=== PATIENT | female | born 1940 | race Caucasian/White ===

== ENCOUNTER 2022-06-06 11:58 | Outpatient (REF) | payer MEDICARE, MEDICAID, SELFPAY ==
[2022-06-06 12:34] LABS: VALPROIC ACID 27.9 ug/mL
== END 2022-06-06 11:59 | disposition home or self-care (01) ==
LOC: LBN 11:58
PROVIDERS: Visit Provider Family Medicine
DX: F33.1 Major depressive disorder, recurrent, moderate (principal); F01.A0 Vascular dementia, mild, without behavioral disturbance, psychotic disturbance, mood disturbance, and anxiety; Z51.81 Encounter for therapeutic drug level monitoring; Z79.899 Other long term (current) drug therapy
CPT/HCPCS: 80164

== ENCOUNTER 2022-07-11 17:06 | Outpatient (REF) | payer MEDICARE, MEDICAID, SELFPAY ==
[2022-07-11 17:46] LABS: Abs Immature Grans 0.07 10^3/uL (0.0-0.06); Absolute Lymphocyte Count 1.55 10^3/uL (1.2-3.4); Absolute Monocyte Count 1.02 10^3/uL (0.1-0.8); Basophils % 0.2; HGB 11.9 g/dL (11.2-15.7); Immature Grans % 0.4; Lymphocytes % 8.5; MCH 28.7 pg (27.0-33.0); MCHC 32.2 % (32.0-36.0); MCV 89 fL (80-95); Monocytes % 5.6; Neutrophils % 85.3; Platelet Count 167 10^3/uL (130-400); RBC 4.14 10^6/uL (3.93-5.22); RDW 14.9 % (11.7-14.6); RDW-SD 48.8 fL; WBC 18.22 10^3/uL (4.4-10.8)
[2022-07-11 18:10] LABS: Absolute Basophil Count 0.04 10^3/uL (0.0-0.2); Absolute Neutrophil Count 15.54 10^3/uL (1.2-6.7)
[2022-07-11 18:12] LABS: ALT 19 U/L (14-59); AST 9 U/L (15-37); Albumin 2.9 g/dL (3.4-5.0); Alkaline Phosphatase 67 U/L (46-116); Anion Gap 9.1 mmol/L (3-11); BUN 24 mg/dL (7-18); Bilirubin, Total 0.5 mg/dL (0.2-1.0); CO2 24.9 mmol/L (21.0-32.0); CREATININE 1.2 mg/dL (0.55-1.02); Calcium 9.5 mg/dL (8.5-10.1); Chloride 108 mmol/L (98-107); Estimated GFR 46.05 (mL/min/1.73m2); Glucose 179 mg/dL (74-106); Potassium 3.9 mmol/L (3.5-5.1); Sodium 142 mmol/L (136-145); Total Protein 7.8 g/dL (6.4-8.2)
[2022-07-12 11:41] LABS: Hemoglobin A1C 6.2 % (<5.7)
== END 2022-07-11 17:07 | disposition home or self-care (01) ==
LOC: LBN 17:06
PROVIDERS: Visit Provider Family Medicine
DX: E11.9 Type 2 diabetes mellitus without complications (principal); D64.9 Anemia, unspecified; N18.30 Chronic kidney disease, stage 3 unspecified
CPT/HCPCS: 80053; 83036; 85025

== ENCOUNTER 2022-07-12 17:59 | Outpatient (REF) | payer MEDICARE, MEDICAID, SELFPAY ==
[2022-07-12 10:20] LABS: Bilirubin Negative (Negative); Blood Trace-intact (Negative); Clarity Sl Cloudy (Clear); Glucose Negative (Negative); Ketones Negative (Negative); Leukocyte Esterase Large (Negative); Nitrite Positive (Negative); Urobilinogen 0.2 mg/dL (Up to 0.2)
[2022-07-12 10:27] LABS: C & S Indicated? C&S Done As Ordered; WBC >50 HPF (0-5)
[2022-07-12 10:48] LABS: COVID-19 PCR Negative (Negative); Influenza A PCR Negative (Negative); Influenza B PCR Negative (Negative); RSV PCR Negative (Negative)
[2022-07-12 10:50] LABS: Source Nasopharynx
== END 2022-07-12 18:00 | disposition home or self-care (01) ==
LOC: LBN 17:59
PROVIDERS: Visit Provider Physician Assistant
DX: D72.0 Genetic anomalies of leukocytes; B96.4 Proteus (mirabilis) (morganii) as the cause of diseases classified elsewhere
CPT/HCPCS: 87077; 87637; 81003; 81015; 87086; 87186

== ENCOUNTER 2022-07-21 17:10 | Outpatient (REF) | payer MEDICARE, MEDICAID, SELFPAY ==
[2022-07-21 18:30] LABS: Abs Immature Grans 0.04 10^3/uL (0.0-0.06); Absolute Basophil Count 0.05 10^3/uL (0.0-0.2); Absolute Eosinophil Count 0.16 10^3/uL (0.0-0.7); Absolute Lymphocyte Count 1.79 10^3/uL (1.2-3.4); Absolute Monocyte Count 0.63 10^3/uL (0.1-0.8); Basophils % 0.5; Eosinophils % 1.7; HCT 33.2 % (36.0-46.0); HGB 10.7 g/dL (11.2-15.7); Immature Grans % 0.4; Lymphocytes % 19.3; MCH 28.8 pg (27.0-33.0); MCHC 32.2 % (32.0-36.0); MCV 89 fL (80-95); Monocytes % 6.8; Neutrophils % 71.3; Platelet Count 186 10^3/uL (130-400); RBC 3.72 10^6/uL (3.93-5.22); RDW 14.4 % (11.7-14.6); RDW-SD 46.6 fL; WBC 9.27 10^3/uL (4.4-10.8)
[2022-07-21 18:46] LABS: ALT 11 U/L (14-59); AST < 5 U/L (15-37); Albumin 2.6 g/dL (3.4-5.0); Alkaline Phosphatase 62 U/L (46-116); Anion Gap 6.3 mmol/L (3-11); BUN 16 mg/dL (7-18); Bilirubin, Total 0.2 mg/dL (0.2-1.0); CO2 27.7 mmol/L (21.0-32.0); Calcium 8.9 mg/dL (8.5-10.1); Chloride 108 mmol/L (98-107); Estimated GFR 57.31 (mL/min/1.73m2); Glucose 151 mg/dL (74-106); Potassium 3.6 mmol/L (3.5-5.1); Sodium 142 mmol/L (136-145); Total Protein 6.5 g/dL (6.4-8.2)
== END 2022-07-21 17:11 | disposition home or self-care (01) ==
LOC: LBN 17:10
PROVIDERS: Visit Provider Physician Assistant
DX: G83.9 Paralytic syndrome, unspecified (principal)
CPT/HCPCS: 80053; 85025

== ENCOUNTER 2022-08-08 17:21 | Outpatient (REF) | payer MEDICARE, MEDICAID, SELFPAY ==
[2022-08-08 18:55] LABS: TSH 1.36 uIU/mL (0.36-3.74)
== END 2022-08-08 17:22 | disposition home or self-care (01) ==
LOC: LBN 17:21
PROVIDERS: Visit Provider Physician Assistant
DX: E03.9 Hypothyroidism, unspecified (principal)
CPT/HCPCS: 84443

== ENCOUNTER 2022-08-25 07:25 | Outpatient (REF) | payer MEDICARE, MEDICAID, SELFPAY ==
[2022-08-26 07:46] LABS: Bilirubin Negative (Negative); Blood Negative (Negative); Clarity Clear (Clear); Glucose Negative (Negative); Ketones Negative (Negative); Leukocyte Esterase Small (Negative); Nitrite Negative (Negative); Specific Gravity >= 1.030 (1.005-1.025); Urobilinogen 0.2 mg/dL (Up to 0.2)
[2022-08-26 08:46] LABS: Bacteria Negative HPF (Negative); Epithelial Cells Few HPF (Negative); WBC 20-50 HPF (0-5)
[2022-08-26 08:47] LABS: Casts 0-2 Hyaline LPF (Negative); Crystals Few Calcium Oxalate HPF (Negative); Mucus Trace (Negative)
[2022-08-26 08:48] LABS: C & S Indicated? Yes
== END 2022-08-25 07:26 | disposition home or self-care (01) ==
LOC: LBN 07:25
PROVIDERS: Visit Provider Physician Assistant
DX: R30.9 Painful micturition, unspecified (principal); I50.9 Heart failure, unspecified; R82.79 Other abnormal findings on microbiological examination of urine
CPT/HCPCS: 81003; 81015; 87086

== ENCOUNTER 2022-10-02 15:25 | Inpatient (IN) | payer MEDICARE, MEDICAID, SELFPAY ==
[2022-10-02] VITALS (94 sets, daily range): BP systolic 104–157; BP diastolic 49–107; PULSE 76–147; RESP 5–33; TEMP 36.3–36.9; O2SAT 84–95
--- NOTE | 2022-10-02 15:30 | RT.EKG_ITS ---
APPROVED REPORT Exam: Resting ECG Reason for Exam: SOB Patient Location: I HR:121 bpm ECG Measurements Heart Rate 121 AXIS MN [id number] P [id number] QRSd 71 QRS 3 QT 333 T 40 QTc 474 Conclusion Atrial fibrillation...? atrial activity Nondiagnostic ST-T abnormalities
--- NOTE | 2022-10-02 15:30 | DI.RAD_ITS ---
Exam(s) XR PORTABLE CHEST AP EXAM: XR PORTABLE CHEST AP CLINICAL HISTORY: sob. TECHNIQUE: 2D digital imaging was performed. COMPARISON: No exams were available for comparison FINDINGS: Single AP portable view. Heart size is upper normal. The mediastinum is not widened. There is significant infiltrate in the right lung, predominantly in the right upper lobe but also inv olving the lower lobe. The left lung is clear. There are no obvious pleural effusions. Vertebroplasty cement is noted in L1 vertebral body IMPRESSION: Prominent right lung infiltrates as described above. No obvious pleural effusions evident on this si ngle portable view. DATA REPOSITORY: RADIATION DOSE DELIVERED:
[2022-10-02] MEDS: Albuterol/Ipratropium 3 ML UPD VIAL UPD (15:37)
[2022-10-02] MEDS: Normal Saline 1,000 ML 1000 ML IV (15:50)
[2022-10-02] MEDS: methylPREDNISolone SUCC 125 MG VIAL IVP (15:52)
[2022-10-02 15:56] LABS: Abs Immature Grans 0.06 10^3/uL (0.0-0.06); Absolute Lymphocyte Count 1.28 10^3/uL (1.2-3.4); Absolute Monocyte Count 0.68 10^3/uL (0.1-0.8); Basophils % 0.2; HCT 36.6 % (36.0-46.0); HGB 11.6 g/dL (11.2-15.7); Immature Grans % 0.5; Lymphocytes % 9.7; MCH 28.3 pg (27.0-33.0); MCHC 31.7 % (32.0-36.0); MCV 89 fL (80-95); Monocytes % 5.2; Neutrophils % 84.4; Platelet Count 203 10^3/uL (130-400); RDW 15.1 % (11.7-14.6); RDW-SD 49.1 fL; WBC 13.15 10^3/uL (4.4-10.8)
[2022-10-02 15:58] LABS: Absolute Basophil Count 0.03 10^3/uL (0.0-0.2)
[2022-10-02 16:15] LABS: ALT 12 U/L (14-59); AST 6 U/L (15-37); Albumin 2.8 g/dL (3.4-5.0); Alkaline Phosphatase 66 U/L (46-116); BUN 49 mg/dL (7-18); Bilirubin, Total 0.5 mg/dL (0.2-1.0); CREATININE 1.4 mg/dL (0.55-1.02); Calcium 9.5 mg/dL (8.5-10.1); Chloride 111 mmol/L (98-107); Estimated GFR 38.27 (mL/min/1.73m2); Glucose 169 mg/dL (74-106); Magnesium 2.2 mg/dL (1.8-2.4); Potassium 4.3 mmol/L (3.5-5.1); Sodium 148 mmol/L (136-145); Troponin I < 50 ng/L (<or=60)
--- NOTE | 2022-10-02 16:23 | W.ED.GENAD ---
Discharge Plan Discharge Details Chief Complaint: SOB/SuddenOnset Admit Date/Time: 10/02/22 16:51 Admit Provider: Shekhar Wiggins Attending Provider: Shekhar Wiggins Primary Care Provider: None,None ED Provider: Tony Mo Medical Decision Making Upon arriving to the emergency department. Patient was treated with a DuoNeb and Solu-Medrol and respiratory at bedside present suctioning. Patient did mildly better with this but was found to be persistently hypoxic. Given minimal to no change after DuoNeb the patient was placed on rescue BiPAP for presumptive diagnosis of congestive heart failure. Please see critical care note for further details medical decision-making. Patient admitted to the hospitalist to the ICU because she was unresponsive by pulm HPI General Date/Time Provider Initiated Documentation: 10/02/22 15:30. HPI Narrative: 81-year-old who according to EMS was found to be altered this morning, at the end of the shift he decided to send the patient to the emergency department. According to EMS she was found in respiratory distress with low sats requiring supplemental oxygen which she usually does not have. With 4 L of oxygen her saturations climbed above 19. She arrives to the emergency room with an altered mental status. She was also found to be in rapid atrial fibrillation. The patient is unable to provide any medical history on arrival. Medical history obtained by EMS and review of the custodial paperwork. Related Data Home Medications Medication Instructions Recorded Confirmed acetaminophen 500 mg tablet 1,000 mg PO TID PRN 10/02/22 10/02/22 amlodipine 10 mg tablet 10 mg PO DAILY 10/02/22 10/02/22 cholecalciferol (vitamin D3) 25 25 mcg PO DAILY 10/02/22 10/02/22 mcg (1,000 unit) tablet divalproex 125 mg capsule,delayed 125 mg PO BID 10/02/22 10/02/22 release sprinkle fluticasone 500 mcg-salmeterol 50 1 inh inhalation BID 10/02/22 10/02/22 mcg/dose blistr powdr for inhalation (Advair Diskus) furosemide 20 mg tablet 20 mg PO DAILY 10/02/22 10/02/22 hydrocortisone 2.5 % topical cream 1 applic topical Q12H PRN 10/02/22 10/02/22 insulin detemir U-100 100 unit/mL 30 unit subcut QAM 10/02/22 10/02/22 (3 mL) subcutaneous pen (Levemir FlexPen) ipratropium 20 mcg-albuterol 100 2 puff inhalation Q6H 10/02/22 10/02/22 mcg/actuation mist for inhalation (Combivent Respimat) levothyroxine 50 mcg tablet 50 mcg PO DAILY 10/02/22 10/02/22 loperamide 2 mg capsule 2 mg PO Q4H PRN 10/02/22 10/02/22 metoprolol tartrate 50 mg tablet 50 mg PO BID 10/02/22 10/02/22 nystatin 100,000 unit/gram topical 1 applic topical PRN PRN 10/02/22 10/02/22 powder polyethylene glycol 3350 17 gram 17 g PO PRN PRN 10/02/22 10/02/22 oral powder packet (Miralax) sertraline 50 mg tablet 150 mg PO DAILY 10/02/22 10/02/22 umeclidinium 62.5 mcg/actuation 1 inh inhalation DAILY 10/02/22 10/02/22 blister powder for inhalation (Incruse Ellipta) Allergies Allergy/AdvReac Type Severity Reaction Status Date / Time No Known Allergies Allergy Unverified 10/02/22 15:55 General Stated Complaint: SOB/SuddenOnset OTIS: 2 Review of Systems Narrative: Unable to obtain review of systems PFSH All Active Problems (Updated 10/02/22 @ 17:16 by Shekhar Wiggins MD) Discharge planning issues (Acute) Hypothyroidism (Chronic) Depression (Chronic) Hypertension (Chronic) Acute respiratory failure (Acute) COPD (chronic obstructive pulmonary disease) (Chronic) Aspiration pneumonia (Acute) Social History Smoking/Tobacco Use Status: Unknown Smoking risk assessment performed?: Yes Exam Narrative Exam Narrative: General: Altered mental status, arousable nonverbal Head Size/Shape: normocephalic, atraumatic Eyes Pupils: PERRLA Extraocular Mobility: intact and symmetrical Conjunctiva: non-injected, anicteric, no discharge Ears, Nose, Throat Nares: patent bilaterally Oral Cavity: moist Neck: no masses, no crepitus Lymph Nodes: no cervical lymphadenopathy Respiratory Respiratory Effort:pos dyspnea Auscultation: Crackles bilaterally Cardiovascular Heart Auscultation: Tachycardic, irregular irregular Pulse Quality: +2 equal bilaterally, location(s) radial Abdomen Inspection and Palpation: soft, non-tender, non-distended, no hepatosplenomegaly Musculoskeletal System Joints, Bones, and Muscles: no deformities Extremities: warm and well-perfused, no cyanosis, capillary refill <2 seconds Skin Skin Inspection: no rash, no lesions, no bruising Neurological Motor: normal tone, normal strength, moving all extremities equally Psychiatric: good insight, good judgement, normal mood and affect Course Vital Signs Vital signs: Vital Signs Temperature 36.6 C 10/02/22 15:25 Pulse 110 H 10/02/22 15:25 Respiratory Rate 20 10/02/22 15:25 Blood Pressure 139/63 10/02/22 15:25 Pulse Oximetry 90 L 10/02/22 15:25 Temperature 36.6 C 10/02/22 15:25 Temperature Source Oral 10/02/22 15:25 Pulse 113 H 10/02/22 16:15 Respiratory Rate 26 H 10/02/22 16:15 Blood Pressure 139/63 10/02/22 15:25 Blood Pressure Position Sitting 10/02/22 15:25 Pulse Oximetry 92 10/02/22 16:15 Oxygen Delivery Method Nasal Cannula 10/02/22 15:37 Oxygen Flow Rate 3 10/02/22 15:37 Fraction of Inspired Oxygen (FIO2) 30 10/02/22 16:15 Lab/Test Results Lab/Test Results: Laboratory Tests Range/Units 10/02/22 10/02/22 15:43 15:43 WBC (4.4-10.8) 10^3/uL 13.15 H RBC (3.93-5.22) 10^6/uL 4.10 Hgb (11.2-15.7) g/dL 11.6 Hct (36.0-46.0) % 36.6 MCV (80-95) fL 89 MCH (27.0-33.0) pg 28.3 MCHC (32.0-36.0) % 31.7 L RDW (11.7-14.6) % 15.1 H Plt Count (130-400) 10^3/uL 203 MPV (8.0-11.0) fL Immature Gran % 0.5 Neutrophils % 84.4 Lymphocytes % 9.7 Monocytes % 5.2 Eosinophils % 0.0 Basophils % 0.2 Nucleated RBC % (0.0-0.3) % 0.0 Absolute Neutrophils (1.2-6.7) 10^3/uL 11.10 H Absolute Lymphocytes (1.2-3.4) 10^3/uL 1.28 Absolute Monocytes (0.1-0.8) 10^3/uL 0.68 Absolute Eosinophils (0.0-0.7) 10^3/uL 0.00 Absolute Basophils (0.0-0.2) 10^3/uL 0.03 Sodium (136-145) mmol/L 148 H Potassium (3.5-5.1) mmol/L 4.3 Chloride (98-107) mmol/L 111 H Carbon Dioxide (21.0-32.0) mmol/L 24.0 Anion Gap (3-11) mmol/L 13.0 H BUN (7-18) mg/dL 49 H Creatinine (0.55-1.02) mg/dL 1.4 H Est GFR (CKD-EPI 2020) (mL/min/1.73m2) 38.27 Glucose (74-106) mg/dL 169 H Calcium (8.5-10.1) mg/dL 9.5 Magnesium (1.8-2.4) mg/dL 2.2 Total Bilirubin (0.2-1.0) mg/dL 0.5 AST (15-37) U/L 6 L ALT (14-59) U/L 12 L Alkaline Phosphatase (46-116) U/L 66 Troponin I (<or=60) ng/L < 50 Total Protein (6.4-8.2) g/dL 8.0 Albumin (3.4-5.0) g/dL 2.8 L Critical Care Time Critical Care Time Total Critical Care Time: 35 Attestation: 81-year-old lady with altered mental status throughout the day. Sent from the custodial for evaluation. Found to be in rapid atrial fibrillation as well as respiratory distress. Treated with bronchodilators and steroids initially in the emergency department with very little results therefore, transition to rescue BiPAP with significant improvement. Decreased work of breathing. She was also found to have right-sided pneumonia for which antibiotics were ordered. Case discussed with hospitalist. Patient to be admitted to the ICU because of rescue BiPAP. Patient is DNR/DNI.
[2022-10-02 16:39] LABS: Bilirubin Negative (Negative); Blood Negative (Negative); Clarity Clear (Clear); Glucose Negative (Negative); Ketones Trace mg/dL (Negative); Leukocyte Esterase Negative (Negative); Nitrite Negative (Negative); Specific Gravity 1.015 (1.005-1.025); Urobilinogen 0.2 mg/dL (Up to 0.2); pH 5.5 (5-8)
[2022-10-02] MEDS: Furosemide 40 MG/4 ML VIAL IVP (16:42)
--- NOTE | 2022-10-02 16:43 | DI.VRAD_ITS ---
PROCEDURE INFORMATION: Exam: XR Chest Exam date and time: 10/02/2022 4:25 PM Age: 81 years old Clinical indication: Shortness of breath TECHNIQUE: Imaging protocol: Radiologic exam of the chest. Views: 1 view. COMPARISON: No relevant prior studies available. FINDINGS: Lungs: Right-sided pulmonary infiltrates are noted. Lobar consolidative changes in the right upper lobe. Segmental consolidative changes in the right lower lobe. Left lung is essentially clear. Pleural spaces: No gross pleural effusion. Heart/Mediastinum: Mild cardiac enlargement. Bones/joints: Degenerative skeletal changes. Previous kyphoplasty in the region of L1. IMPRESSION: Right-sided pneumonia involving upper and lower lung mora. Dictated and Authenticated by: Robert Go MD. Ordering:JAVIER Jimenez MD
--- NOTE | 2022-10-02 17:05 | W.PM.HP.N ---
Date of service: 10/02/22 Time of Service: 17:05 Assessment and Plan Assessment and plan (1) Aspiration pneumonia: Status: Acute Assessment and plan: Right upper and lower lobe infiltrates; extensive. BiPAP, accapella and IS when able. Rocephin 2gram IV Q24H. Blood cultures obtained in ED. (2) COPD (chronic obstructive pulmonary disease): Status: Chronic Assessment and plan: Cont Umeclidinium bromide; home med. PRN albuterol nebs. She was give a dose of IV solu-medrol in the ED. Doesn't appear to be in an exacerbation. (3) Acute respiratory failure: Status: Acute Assessment and plan: Secondary to pneumonia. Cont BiPAP. (4) Hypertension: Status: Chronic Assessment and plan: Cont amlodipine and metoprolol with parameters. (5) Depression: Status: Chronic Assessment and plan: Cont sertraline and depakote. (6) Hypothyroidism: Status: Chronic Assessment and plan: Cont levothyroxine. (7) Discharge planning issues: Status: Acute Assessment and plan: [facility] DNR/DNI History of Present Illness History of Present Illness Chief Complaint: Shortness of breath. Decreased LOC Narrative: This is a 81 yo female with a PMH of COPD, HTN, depression. She was sent to the ED from [facility] for altered level of consciouness noted earlier in the AM and then she developed respiratory distressed. No report of CP, N/V, Fever. She denies any recent choking event. In the ED she was tachycardic and tachypneic. She was administered a Duoneb treatment and IV solu-medrol. She was placed on BiPAP. Her WBC was 13.15. Na 148. K 4.3. BUN 49. Creatinine 1.4. Glucose 169. Procalcitonin elevated at 5.6. Initial DDX included CHF and 20mg IV lasix administered. CXR, however, showed Pneumonia of R upper and lower lung mora; likely aspiration. Rocephin initiated. Review of Systems All systems reviewed & are unremarkable except as noted in HPI and below PFSH All Active Problems (Updated 10/03/22 @ 12:52 by Haily King MD) NISHA (acute kidney injury) (Acute) Hypernatremia (Acute) Leukocytosis (Acute) Discharge planning issues (Acute) Hypothyroidism (Chronic) Depression (Chronic) Hypertension (Chronic) Acute respiratory failure (Acute) COPD (chronic obstructive pulmonary disease) (Chronic) Aspiration pneumonia (Acute) Social History Smoking/Tobacco Use Status: Former Tobacco Use Tobacco: How many years used: 30 Smoking risk assessment performed?: Yes Meds Allergies and Home Medications Allergies Allergy/AdvReac Type Severity Reaction Status Date / Time No Known Allergies Allergy Unverified 10/02/22 15:55 Home Medications Medication Instructions Recorded Confirmed Type acetaminophen 500 mg tablet 1,000 mg PO TID PRN 10/02/22 10/02/22 History amlodipine 10 mg tablet 10 mg PO DAILY 10/02/22 10/02/22 History cholecalciferol (vitamin D3) 25 25 mcg PO DAILY 10/02/22 10/02/22 History mcg (1,000 unit) tablet divalproex 125 mg capsule,delayed 125 mg PO BID 10/02/22 10/02/22 History release sprinkle fluticasone 500 mcg-salmeterol 50 1 inh inhalation BID 10/02/22 10/02/22 History mcg/dose blistr powdr for inhalation (Advair Diskus) furosemide 20 mg tablet 20 mg PO DAILY 10/02/22 10/02/22 History hydrocortisone 2.5 % topical cream 1 applic topical Q12H PRN 10/02/22 10/02/22 History insulin detemir U-100 100 unit/mL 30 unit subcut QAM 10/02/22 10/02/22 History (3 mL) subcutaneous pen (Levemir FlexPen) ipratropium 20 mcg-albuterol 100 2 puff inhalation Q6H 10/02/22 10/02/22 History mcg/actuation mist for inhalation (Combivent Respimat) levothyroxine 50 mcg tablet 50 mcg PO DAILY 10/02/22 10/02/22 History loperamide 2 mg capsule 2 mg PO Q4H PRN 10/02/22 10/02/22 History metoprolol tartrate 50 mg tablet 50 mg PO BID 10/02/22 10/02/22 History nystatin 100,000 unit/gram topical 1 applic topical PRN PRN 10/02/22 10/02/22 History powder polyethylene glycol 3350 17 gram 17 g PO PRN PRN 10/02/22 10/02/22 History oral powder packet (Miralax) sertraline 50 mg tablet 150 mg PO DAILY 10/02/22 10/02/22 History umeclidinium 62.5 mcg/actuation 1 inh inhalation DAILY 10/02/22 10/02/22 History blister powder for inhalation (Incruse Ellipta) Exam Narrative Exam Narrative: Gen: Pt is lying supine on gurney. She is conversational. Weak vocal projection. Congestion in upper airway audible w/o stethascope. HEENT: atraumatic. Sclera clear. mildly dry mucous membranes. Neck: no JVD Lungs: diminished on the right but coarse throughout. Mildly labored breathing. CV: Tachy, irregular rhythm Abd: obese, NT, ND, +BS Ext: No edema or calf tenderness. Neuro: Sven. No focal motor deficits. No facial droop. Voice projection is weak. No tremor. Psych: Gross appearance is normal. Affect appropriate. Results Labs 10/03/22 05:45 10/03/22 05:45 Labs: Laboratory Results - last 24 hr 10/02/22 10/02/22 10/02/22 15:43 15:43 16:10 WBC 13.15 H RBC 4.10 Hgb 11.6 Hct 36.6 MCV 89 MCH 28.3 MCHC 31.7 L RDW 15.1 H Plt Count 203 MPV Immature Gran % 0.5 Neutrophils % 84.4 Lymphocytes % 9.7 Monocytes % 5.2 Eosinophils % 0.0 Basophils % 0.2 Nucleated RBC % 0.0 Absolute Neutrophils 11.10 H Absolute Lymphocytes 1.28 Absolute Monocytes 0.68 Absolute Eosinophils 0.00 Absolute Basophils 0.03 Sodium 148 H Potassium 4.3 Chloride 111 H Carbon Dioxide 24.0 Anion Gap 13.0 H BUN 49 H Creatinine 1.4 H Est GFR (CKD-EPI 2020) 38.27 Glucose 169 H Calcium 9.5 Magnesium 2.2 Total Bilirubin 0.5 AST 6 L ALT 12 L Alkaline Phosphatase 66 Troponin I < 50 Total Protein 8.0 Albumin 2.8 L Urine Color Yellow Urine Clarity Clear Urine pH 5.5 Ur Specific [place] 1.015 Urine Protein Negative Urine Ketones Trace H Urine Blood Negative Urine Nitrite Negative Urine Bilirubin Negative Urine Urobilinogen 0.2 Ur Leukocyte Esterase Negative Urine Glucose Negative Last Vital Signs Temp 36.6 C 10/02/22 15:25 Pulse 113 H 10/02/22 16:15 Resp 26 H 10/02/22 16:15 BP 139/63 10/02/22 15:25 Pulse Ox 92 10/02/22 16:15 Time Spent Time spent with Patient: 40-54 minutes Time was spent: preparing to see the patient(eg.review tests), obtaining and/or reviewing separately otained hiistory, ordering medications,tests, procedures, referring, communicating with other health respiratory care faculty, indepentently interpreting results, counseling the patient and care coordination
[2022-10-02 17:28] LABS: Source Nasal/Nares
[2022-10-02 17:33] LABS: Lab Add On Test DONE
[2022-10-02 18:05] LABS: Procalcitonin 5.6 ng/mL
[2022-10-02 18:06] LABS: COVID-19 PCR Negative (Negative)
[2022-10-02 18:52] LABS: BE (Venous) -3 mmol/L (-2-3); HCO3 (Venous) 22 mmol/L (23-28); O2 Sat (Venous) 79 %; TCO2 (Venous) 20 mmol/L (24-29); pCO2 (Venous) 37 mmHg (41-51); pO2 (Venous) 45 mmHg
--- NOTE | 2022-10-02 18:55 | NUR.NOTE ---
This database report writer received patient in the ICU at 1805, pt arrived stable on two liters NC without complaints. Pt was then placed on monitoring specialist and tse catheter was inserted with good tolerance. Pt hand off was completed at bedside with Kalpana CURIEL, plan of care remains on going.
[2022-10-02 19:12] LABS: Troponin I < 50 ng/L (<or=60)
[2022-10-02] MEDS: Normal Saline 1,000 ML 100 ML IV (19:20)
[2022-10-02] MEDS: Metoprolol 50 MG TAB PO (19:20)
[2022-10-02] MEDS: Normal Saline Flush 10 ML SYR IVP (19:25)
[2022-10-02] MEDS: Normal Saline Flush 10 ML SYR (19:26)
[2022-10-02] MEDS: cefTRIAXone 2 GM/50 ML BAG IVPB (19:38)
[2022-10-02] MEDS: Divalproex 125 MG SPRINKLE PO (20:54)
[2022-10-02] MEDS: Enoxaparin 30 MG/0.3 ML SYR SC (20:54)
[2022-10-02] MEDS: guaiFENesin 600 MG TABCR PO (20:54)
[2022-10-02] MEDS: Budesonide/Formoterol 160/4.5 6 GM 60 PUFF INH IH (20:55)
[2022-10-02] MEDS: Insulin Aspart 300 UNITS/3 ML PEN SC (23:40)
[2022-10-03] VITALS (99 sets, daily range): BP systolic 100–164; BP diastolic 46–132; PULSE 72–169; RESP 1–34; TEMP 34–36.9; O2SAT 65–95
[2022-10-03] MEDS: Ipratropium/Albuterol 4 GM 120 PUFF INH IH ×3 (02:56→11:30)
[2022-10-03] MEDS: Normal Saline 1,000 ML 100 ML IV (05:39)
[2022-10-03 06:42] LABS: Abs Immature Grans 0.06 10^3/uL (0.0-0.06); Absolute Lymphocyte Count 0.64 10^3/uL (1.2-3.4); Basophils % 0.5; HCT 35.2 % (36.0-46.0); HGB 11.1 g/dL (11.2-15.7); Immature Grans % 0.3; Lymphocytes % 3.6; MCH 28.5 pg (27.0-33.0); MCHC 31.5 % (32.0-36.0); MCV 91 fL (80-95); Monocytes % 6.1; Neutrophils % 88.5; Nucleated RBC 0.1 % (0.0-0.3); RBC 3.89 10^6/uL (3.93-5.22); RDW 15.3 % (11.7-14.6); RDW-SD 50.4 fL; WBC 17.74 10^3/uL (4.4-10.8)
[2022-10-03 06:43] LABS: Anion Gap 13.7 mmol/L (3-11); BUN 44 mg/dL (7-18); CO2 23.3 mmol/L (21.0-32.0); CREATININE 1.2 mg/dL (0.55-1.02); Calcium 9.2 mg/dL (8.5-10.1); Chloride 114 mmol/L (98-107); Estimated GFR 46.05 (mL/min/1.73m2); Glucose 174 mg/dL (74-106); Potassium 3.6 mmol/L (3.5-5.1); Sodium 151 mmol/L (136-145)
[2022-10-03 06:46] LABS: Absolute Basophil Count 0.09 10^3/uL (0.0-0.2); Absolute Eosinophil Count 0.18 10^3/uL (0.0-0.7); Absolute Monocyte Count 1.08 10^3/uL (0.1-0.8)
--- NOTE | 2022-10-03 07:00 | RT.EKG_ITS ---
APPROVED REPORT Exam: Resting ECG Reason for Exam: Irreg rhythm Patient Location: I HR:79 bpm ECG Measurements Heart Rate 79 AXIS W[place] 127 P 77 QRSd 67 QRS 32 QT 454 T 172 QTc 521 Conclusion Sinus rhythm...normal P axis, V-rate 50- 99 Prolonged QT interval...QTc >500mS
--- NOTE | 2022-10-03 07:14 | W.PULMCC ---
General Date of Service Date of service: 10/03/22 Time of Service: 07:14 Reason for Admission to ICU: Hypoxic respiratory failure Assessment and Plan Assessment and plan (1) Acute respiratory failure: Status: Acute (2) COPD (chronic obstructive pulmonary disease): Status: Chronic (3) Aspiration pneumonia: Status: Acute (4) Leukocytosis: Status: Acute (5) Hypernatremia: Status: Acute (6) NISHA (acute kidney injury): Status: Acute (7) Hypertension: Status: Chronic (8) Hypothyroidism: Status: Chronic Assessment and plan: This is a 81 yo admitted to the ICU for hypoxic respiratory failure. This seems to be due to an aspiration event resulting in pneumonia. On POCUS she did not have B-Lines anteriorly and her cardiac function looked appropriate. Ceftriaxone is appropriate for her aspiration pneumonia. I will change her nebulized budesonide back to her inhaler regimen. I also recommend she try HFNC today and plan for CPAP tonight again. She was on normal saline and has a hypernatremia so I stopped the NS and recommended water intake via PO. If she is unable to do so, he water deficit is 1.4L, so would recommend D5W at 100cc/hr for 1 L. Recommendations Pulmonary: Hypoxic respiratory failure - CPAP 8 at night - HFNC with 60L flow and titrate FiO2 - VibraPEP and IS as able - D/C normal saline COPD - Symbicort and Incruse - nebs prn - d/c budesonide neb Cardiac: HTN - on home meds Renal: NISHA - continue to monitor Hypernatremia - stop NS - encourage PO water intake if able - if patient unable to drink water, recommend D5W @ 100cc/hr for 1 L I&O: Intake & Output 09/30/22 10/01/22 10/02/22 10/03/22 23:59 23:59 23:59 23:59 Intake Total 1010 / 1010 1000 / 1000 Output Total 900 / 900 375 / 375 Balance 110 / 110 625 / 625 Weight 74.5 kg Daily Fluid Goal:: even GI Nutrition: Aspiration concern - recommend PULMONARY CARE NURSE - recommend diet as able Date of Last Bowel Movement: 10/02/22 Infectious Disease: Pneumonia - continue ceftriaxone - urine antigens for strep and legionella Hematologic: Leukocytosis - due to infection - continue to monitor Neurologic: Baseline dementia Endocrine: Hypothyroidism - on home levothyroxine Lines: PIV Prophylaxis: Lovenox Code Status: Resuscitation Status DNR/DNI Subjective Critical and life-threatening events over the past 24 hours: This is a 81 yo admitted to the ICU from [facility] for AMS and respiratory failure. There is a presumption of aspiration. She was started on CPAP overnight and started on ceftriaxone. Her CXR was significant for a right sided pneumonia. She is sleepy but arousable this morning. Exam Narrative Exam Narrative: Gen: NAD, normal respiratory effort, well-nourished HENT: PERRL Chest: No respiratory distress, normal appearance of chest, clear to auscultation bilaterally, no crackles or wheezes, normal inspiratory effort Heart: regular rate and rhythym, no murmurs, rubs or gallops Abdomen: Non-distended, soft, non tender Extremities: No clubbing, edema, cyanosis, rashes Neuro: AAOx3 , non focal Psych: cooperative, appropriate mental affect Most Recent VS/Results Last Vital Signs Temp 36.9 C 10/03/22 04:04 Pulse 76 10/03/22 04:04 Resp 24 10/03/22 04:04 BP 146/59 H 10/03/22 04:04 Pulse Ox 93 10/03/22 04:04 Laboratory Results - last 24 hr 10/02/22 10/02/22 10/02/22 15:43 15:43 15:43 WBC 13.15 H RBC 4.10 Hgb 11.6 Hct 36.6 MCV 89 MCH 28.3 MCHC 31.7 L RDW 15.1 H Plt Count 203 MPV Immature Gran % 0.5 Neutrophils % 84.4 Lymphocytes % 9.7 Monocytes % 5.2 Eosinophils % 0.0 Basophils % 0.2 Nucleated RBC % 0.0 Absolute Neutrophils 11.10 H Absolute Lymphocytes 1.28 Absolute Monocytes 0.68 Absolute Eosinophils 0.00 Absolute Basophils 0.03 VBG pH VBG pCO2 VBG pO2 VBG HCO3 VBG Total CO2 VBG O2 Saturation VBG Base Excess Sodium 148 H Potassium 4.3 Chloride 111 H Carbon Dioxide 24.0 Anion Gap 13.0 H BUN 49 H Creatinine 1.4 H Est GFR (CKD-EPI 2020) 38.27 Glucose 169 H Calcium 9.5 Magnesium 2.2 Total Bilirubin 0.5 AST 6 L ALT 12 L Alkaline Phosphatase 66 Troponin I < 50 Total Protein 8.0 Albumin 2.8 L Procalcitonin Urine Color Urine Clarity Urine pH Ur Specific [place] Urine Protein Urine Ketones Urine Blood Urine Nitrite Urine Bilirubin Urine Urobilinogen Ur Leukocyte Esterase Urine Glucose COVID-19 Source SARS-CoV-2 (PCR) Add-On Test Request DONE 10/02/22 10/02/22 10/02/22 15:43 16:10 17:23 WBC RBC Hgb Hct MCV MCH MCHC RDW Plt Count MPV Immature Gran % Neutrophils % Lymphocytes % Monocytes % Eosinophils % Basophils % Nucleated RBC % Absolute Neutrophils Absolute Lymphocytes Absolute Monocytes Absolute Eosinophils Absolute Basophils VBG pH VBG pCO2 VBG pO2 VBG HCO3 VBG Total CO2 VBG O2 Saturation VBG Base Excess Sodium Potassium Chloride Carbon Dioxide Anion Gap BUN Creatinine Est GFR (CKD-EPI 2020) Glucose Calcium Magnesium Total Bilirubin AST ALT Alkaline Phosphatase Troponin I Total Protein Albumin Procalcitonin 5.6 Urine Color Yellow Urine Clarity Clear Urine pH 5.5 Ur Specific [place] 1.015 Urine Protein Negative Urine Ketones Trace H Urine Blood Negative Urine Nitrite Negative Urine Bilirubin Negative Urine Urobilinogen 0.2 Ur Leukocyte Esterase Negative Urine Glucose Negative COVID-19 Source Nasal/Nares SARS-CoV-2 (PCR) Negative Add-On Test Request 10/02/22 10/02/22 10/03/22 18:42 18:42 05:45 WBC RBC Hgb Hct MCV MCH MCHC RDW Plt Count MPV Immature Gran % Neutrophils % Lymphocytes % Monocytes % Eosinophils % Basophils % Nucleated RBC % Absolute Neutrophils Absolute Lymphocytes Absolute Monocytes Absolute Eosinophils Absolute Basophils VBG pH 7.40 VBG pCO2 37 L VBG pO2 45 VBG HCO3 22 L VBG Total CO2 20 L VBG O2 Saturation 79 VBG Base Excess -3 L Sodium 151 H Potassium 3.6 Chloride 114 H Carbon Dioxide 23.3 Anion Gap 13.7 H BUN 44 H Creatinine 1.2 H Est GFR (CKD-EPI 2020) 46.05 Glucose 174 H Calcium 9.2 Magnesium Total Bilirubin AST ALT Alkaline Phosphatase Troponin I < 50 Total Protein Albumin Procalcitonin Urine Color Urine Clarity Urine pH Ur Specific [place] Urine Protein Urine Ketones Urine Blood Urine Nitrite Urine Bilirubin Urine Urobilinogen Ur Leukocyte Esterase Urine Glucose COVID-19 Source SARS-CoV-2 (PCR) Add-On Test Request Review of Systems All systems reviewed & are unremarkable except as noted in HPI and below Time spent with patient Time spent in Critical Care: 45 Time spent in Critical care included: Chart review, Documenting critically ill care, Time at immediate bedside and Discussing critically ill care with other medical staff Pocus Exam Limited Cardiac Exam DATE OF EXAM: 10/03/22 TIME OF EXAM: 08:00 PROVIDER THAT PERFORMED THE STUDY: Haily QUAN A REPEAT EXAM DURING THIS ENCOUNTER: no REASON FOR EXAM: Hypoxia VISUALIZED STRUCTURES: left ventricle, right ventricle and Interventricular septum VIEW OBTAINED: Parasternal long-axis and Parasternal short-axis PERTINENT FINDINGS/IMPRESSION: No apparent abnormalities Exam complete Limited Thoracic Lung Exam DATE OF EXAM: 10/03/22 TIME OF EXAM: 08:00 PROVIDER THAT PERFORMED THE STUDY: Haily QUAN A REPEAT EXAM DURING THIS ENCOUNTER: No REASON FOR EXAM: Hypoxia and Pneumonia VISUALIZED STRUCTURES: right anterior and left anterior PERTINENT FINDINGS/IMPRESSION: no B-Lines/left side and no B-lines/left side Exam complete Multi-Disciplinary Checklist Lines/Tubes CENTRAL LINE: no ARTERIAL LINE: no WALLER: no ENDOTRACHEAL TUBE: no ICU Maintenance GLUCOSE 140-180mg/dL: yes NUTRITION AT GOAL: no, Reason/Intervention: awaiting PULMONARY CARE NURSE PRESSURE ULCER: no RESTRAINTS: no ANTIBIOTICS(if yes, consider Stewardship): Yes Social Issues FAMILY UPDATED: no, Reason/Intervention: defer to hospitalist team PT/OT: no, Reason/Intervention: not appropriate at this time GOALS/DISPOSITION/MOLD DESIGN ENGINEER: yes CODE STATUS: DNR/DNI Prophylaxis DVT PROPHYLAXIS: yes GI PROPHYLAXIS: no
[2022-10-03 07:16] LABS: Diff Comment PLT Morph Reviewed; Platelet Count 179 10^3/uL (130-400); RBC Morphology Normal
--- NOTE | 2022-10-03 10:26 | INITIAL_ITS ---
Date of service: 10/03/22 Time of Service: 10:27 Care Management Initial Assmt Initial Assessment REASON FOR HOSPITALIZATION:: Aspiration pneumonia, acute respiratory failure PREVIOUS FUNCTIONAL STATUS/SOCIAL/FAMILY SUPPORTS:: Presents from [facility] CURRENT FUNCTIONAL STATUS:: Remains in ICU, CM continues to follow. ADVANCE DIRECTIVES:: Requested from [facility]-received and scanned into chart-provided to ICU and noted on white board. Has patient been provided with info about the portal/API?: No Did the patient sign up for the portal?: No CODE STATUS:: DNR/DNI INSURANCE COVERAGE / FINANCIAL ISSUES:: Medicare CURRENT HOME/COMMUNITY SERVICES/EQUIPMENT:: SNF: [facility] PRIMARY CARE PHYSICIAN:: Tuan Ritchie POTENTIAL DISCHARGE NEEDS:: Coordinated return to [facility] PATIENT/FAMILY EDUCATION NEEDS:: Review discharge instructions, discuss Ask Me Three ANTICIPATED BARRIERS TO DISCHARGE:: None identified. TRANSPORTATION:: Via facility W/C Van PLAN:: Gwendolyn will return to [facility] when ready per MD, she will transport via the facility's W/C van. CM continues to follow. PFSH All Active Problems (Updated 10/04/22 @ 10:34 by Ney Dueñas MD) Atrial fibrillation (Chronic) NISHA (acute kidney injury) (Acute) Hypernatremia (Acute) Leukocytosis (Acute) Discharge planning issues (Acute) Hypothyroidism (Chronic) Depression (Chronic) Hypertension (Chronic) Acute respiratory failure (Acute) COPD (chronic obstructive pulmonary disease) (Chronic) Aspiration pneumonia (Acute) Social History Smoking/Tobacco Use Status: Former Tobacco Use Tobacco: How many years used: 30 Smoking risk assessment performed?: Yes
[2022-10-03] MEDS: Albuterol/Ipratropium 3 ML UPD VIAL UPD (14:10)
--- NOTE | 2022-10-03 14:51 | W.PM.PROGNOT ---
Date of Service Date of service: 10/03/22 Time of Service: 14:52 Assessment and Plan Assessment and plan (1) Aspiration pneumonia: Status: Acute Assessment and plan: Right upper and lower lobe infiltrates; extensive. Humidified highflow NC BiPAP overnight, accapella and IS when able. WBC count increased; changed coverage to cefepime 2g Q12H. Blood cultures obtained in ED; pending. (2) COPD (chronic obstructive pulmonary disease): Status: Chronic Assessment and plan: She has been unable to mount an inhalation effort to use her Incruse and the Symbicort. Duonebs TID. Pulmonary following. (3) Acute respiratory failure: Status: Acute Assessment and plan: Secondary to pneumonia. Cont BiPAP. (4) Hypertension: Status: Chronic Assessment and plan: Cont amlodipine and metoprolol with parameters. (5) Depression: Status: Chronic Assessment and plan: Cont sertraline and depakote. (6) Hypothyroidism: Status: Chronic Assessment and plan: Cont levothyroxine. (7) Discharge planning issues: Status: Acute Assessment and plan: [facility] DNR/DNI (8) Hypernatremia: Status: Acute Assessment and plan: Encouraged po water intake but she is taking in very little today; fatigued. D5HNS with 20meq K; 100ml/hr x 500ml. Urine output has been declining. Subjective Subjective Patient reports: no new complaints and afebrile; denies diarrhea or vomiting Interval history since last seen: Pt on BiPAP overnight and a portion of this AM. Has been very tired. No c/o pain Exam Narrative Exam Narrative: Gen: Pt is lying supine. On high-flow NC. Weak vocal projection. Congestion in upper airway audible w/o stethascope. HEENT: atraumatic. Sclera clear. mildly dry mucous membranes. Neck: no JVD Lungs: diminished on the right but coarse throughout. Mildly labored breathing. CV: RRR Abd: obese, NT, ND, +BS Ext: No edema or calf tenderness. Neuro: Sven. No focal motor deficits. No facial droop. Voice projection is weak. No tremor. Psych: Gross appearance is normal. Affect flat; appears very fatigued. Objective Last Vital Signs Temp 36.9 C 10/03/22 12:47 Pulse 85 10/03/22 14:18 Resp 24 10/03/22 14:18 BP 151/55 H 10/03/22 12:47 Pulse Ox 94 10/03/22 14:18 Laboratory Results - last 24 hr 10/02/22 10/02/22 10/02/22 15:43 15:43 15:43 WBC 13.15 H RBC 4.10 Hgb 11.6 Hct 36.6 MCV 89 MCH 28.3 MCHC 31.7 L RDW 15.1 H Plt Count 203 MPV Immature Gran % 0.5 Neutrophils % 84.4 Lymphocytes % 9.7 Monocytes % 5.2 Eosinophils % 0.0 Basophils % 0.2 Nucleated RBC % 0.0 Absolute Neutrophils 11.10 H Absolute Lymphocytes 1.28 Absolute Monocytes 0.68 Absolute Eosinophils 0.00 Absolute Basophils 0.03 RBC Morphology VBG pH VBG pCO2 VBG pO2 VBG HCO3 VBG Total CO2 VBG O2 Saturation VBG Base Excess Sodium 148 H Potassium 4.3 Chloride 111 H Carbon Dioxide 24.0 Anion Gap 13.0 H BUN 49 H Creatinine 1.4 H Est GFR (CKD-EPI 2020) 38.27 Glucose 169 H Calcium 9.5 Magnesium 2.2 Total Bilirubin 0.5 AST 6 L ALT 12 L Alkaline Phosphatase 66 Troponin I < 50 Total Protein 8.0 Albumin 2.8 L Procalcitonin Urine Color Urine Clarity Urine pH Ur Specific [place] Urine Protein Urine Ketones Urine Blood Urine Nitrite Urine Bilirubin Urine Urobilinogen Ur Leukocyte Esterase Urine Glucose COVID-19 Source SARS-CoV-2 (PCR) Add-On Test Request DONE 10/02/22 10/02/22 10/02/22 15:43 16:10 17:23 WBC RBC Hgb Hct MCV MCH MCHC RDW Plt Count MPV Immature Gran % Neutrophils % Lymphocytes % Monocytes % Eosinophils % Basophils % Nucleated RBC % Absolute Neutrophils Absolute Lymphocytes Absolute Monocytes Absolute Eosinophils Absolute Basophils RBC Morphology VBG pH VBG pCO2 VBG pO2 VBG HCO3 VBG Total CO2 VBG O2 Saturation VBG Base Excess Sodium Potassium Chloride Carbon Dioxide Anion Gap BUN Creatinine Est GFR (CKD-EPI 2020) Glucose Calcium Magnesium Total Bilirubin AST ALT Alkaline Phosphatase Troponin I Total Protein Albumin Procalcitonin 5.6 Urine Color Yellow Urine Clarity Clear Urine pH 5.5 Ur Specific [place] 1.015 Urine Protein Negative Urine Ketones Trace H Urine Blood Negative Urine Nitrite Negative Urine Bilirubin Negative Urine Urobilinogen 0.2 Ur Leukocyte Esterase Negative Urine Glucose Negative COVID-19 Source Nasal/Nares SARS-CoV-2 (PCR) Negative Add-On Test Request 10/02/22 10/02/22 10/03/22 18:42 18:42 05:45 WBC RBC Hgb Hct MCV MCH MCHC RDW Plt Count MPV Immature Gran % Neutrophils % Lymphocytes % Monocytes % Eosinophils % Basophils % Nucleated RBC % Absolute Neutrophils Absolute Lymphocytes Absolute Monocytes Absolute Eosinophils Absolute Basophils RBC Morphology VBG pH 7.40 VBG pCO2 37 L VBG pO2 45 VBG HCO3 22 L VBG Total CO2 20 L VBG O2 Saturation 79 VBG Base Excess -3 L Sodium 151 H Potassium 3.6 Chloride 114 H Carbon Dioxide 23.3 Anion Gap 13.7 H BUN 44 H Creatinine 1.2 H Est GFR (CKD-EPI 2020) 46.05 Glucose 174 H Calcium 9.2 Magnesium Total Bilirubin AST ALT Alkaline Phosphatase Troponin I < 50 Total Protein Albumin Procalcitonin Urine Color Urine Clarity Urine pH Ur Specific [place] Urine Protein Urine Ketones Urine Blood Urine Nitrite Urine Bilirubin Urine Urobilinogen Ur Leukocyte Esterase Urine Glucose COVID-19 Source SARS-CoV-2 (PCR) Add-On Test Request 10/03/22 10/03/22 05:45 15:00 WBC 17.74 H RBC 3.89 L Hgb 11.1 L Hct 35.2 L MCV 91 MCH 28.5 MCHC 31.5 L RDW 15.3 H Plt Count 179 MPV Immature Gran % 0.3 Neutrophils % 88.5 Lymphocytes % 3.6 Monocytes % 6.1 Eosinophils % 1.0 Basophils % 0.5 Nucleated RBC % 0.1 Absolute Neutrophils 15.70 H Absolute Lymphocytes 0.64 L Absolute Monocytes 1.08 H Absolute Eosinophils 0.18 Absolute Basophils 0.09 RBC Morphology Normal VBG pH VBG pCO2 VBG pO2 VBG HCO3 VBG Total CO2 VBG O2 Saturation VBG Base Excess Sodium Potassium Chloride Carbon Dioxide Anion Gap BUN Creatinine Est GFR (CKD-EPI 2020) Glucose Calcium Magnesium Total Bilirubin AST ALT Alkaline Phosphatase Troponin I Cancelled Total Protein Albumin Procalcitonin Urine Color Urine Clarity Urine pH Ur Specific [place] Urine Protein Urine Ketones Urine Blood Urine Nitrite Urine Bilirubin Urine Urobilinogen Ur Leukocyte Esterase Urine Glucose COVID-19 Source SARS-CoV-2 (PCR) Add-On Test Request Time Spent with Patient Time Spent with Patient: 35-49 minutes Time was spent: preparing to see the patient(eg.review tests), obtaining and/or reviewing separately otained hiistory, ordering medications,tests, procedures, referring, communicating with other health career guidance counselor, indepentently interpreting results and care coordination
[2022-10-03] MEDS: POTASSIUM CHLORIDE/D5-0.45NACL 1,000 ML 100 MEQ IV (15:40)
--- NOTE | 2022-10-03 15:43 | STREC_ITS ---
Date of service: 10/03/22 Time of Service: 15:43 Speech Therapy Recommendations Report ST Recommendations: NEWS PRODUCTION ASSISTANT NON-TREATMENT NOTE Consult received and chart reviewed. NEWS PRODUCTION ASSISTANT contacting nursing for patient status, nursing reports patient is largely not alert/responsive at this time and does not feel she is safe for PO trials or appropriate to engage in NEWS PRODUCTION ASSISTANT evaluation this date. She has been unable to safely take PO medications so far this date but reportedly did take pills successfully last night. NEWS PRODUCTION ASSISTANT service will be offsite tomorrow, but able to advise via telephone remotely if patient status improves. NEWS PRODUCTION ASSISTANT will be onsite and available to see patient first thing Monday for full evaluation and further advisement as needed. PO intake recommendations for oral comfort/swallow stimulation: If patient awake alert in the meantime, ok to give 3-4 small sips water, oral swabs, or ice chips if good oral care is completed every 2-3 hours. Coding
[2022-10-03] MEDS: Albuterol 2.5 MG/3 ML INH SOLN VIAL UPD (15:56)
[2022-10-03] MEDS: Metoprolol 5 MG/5 ML VIAL (16:12)
[2022-10-03] MEDS: CEFEPIME 2 GM in Normal Saline 100 ML IVPB (16:32)
[2022-10-03] MEDS: Normal Saline Flush 10 ML SYR IVP ×3 (16:59→23:47)
[2022-10-03] MEDS: dilTIAZem 25 MG/5 ML VIAL 10 MG IVP ×2 (16:59→17:58)
[2022-10-03 17:47] LABS: Legionella Ag Detection Urine Negative (Negative)
[2022-10-03] MEDS: Insulin Aspart 300 UNITS/3 ML PEN SC (18:16)
[2022-10-03] MEDS: dilTIAZem 125 MG in Normal Saline 100 ML 15 MG IV (18:50)
[2022-10-03] MEDS: Enoxaparin 30 MG/0.3 ML SYR SC (18:51)
[2022-10-03] MEDS: MORPHine 2 MG/ML SYR IVP (21:10)
--- NOTE | 2022-10-03 21:20 | NUR.NOTE ---
pt unable to maintain sats. called and came to unit. pt asks to stop care, wants comfort only. phone list contacted. most numbers not in service. hang Cabrales contacted and updated, juliannaleena dean contacted and confirms sister lives there. Spoke to Shavonne Urena. updatedNursing Note:
[2022-10-03] MEDS: MORPHine 4 MG/ML SYR IV/SC ×3 (21:41→23:46)
[2022-10-03] MEDS: Scopolamine 1 MG/3 DAYS PATCH TD (22:35)
[2022-10-04] VITALS (7 sets, daily range): PULSE 139; RESP 24; TEMP 34–36.9; O2SAT 68–70
[2022-10-04] MEDS: MORPHine 4 MG/ML SYR IV/SC ×3 (05:32→10:11)
[2022-10-04] MEDS: Normal Saline Flush 10 ML SYR IVP ×2 (05:37→08:20)
--- NOTE | 2022-10-04 09:44 | PGE_ITS ---
Date of Service Date of service: 10/04/22 Time of Service: 09:45 Assessment and Plan Assessment and plan (1) Acute respiratory failure: Status: Acute Assessment and plan: secondary to aspiration d/t dysphagia; complicated by underlying COPD. Patient now on SENIOR LINUX UNIX ENGINEER; she has prn morphine and ativan and atropine drops and scopolamine patch (2) Aspiration pneumonia: Status: Acute Assessment and plan: no longer on antibiotics; SENIOR LINUX UNIX ENGINEER as noted above (3) COPD (chronic obstructive pulmonary disease): Status: Chronic (4) NISHA (acute kidney injury): Status: Acute Assessment and plan: now developing oliguria (5) Atrial fibrillation: Status: Chronic Assessment and plan: no longer on monitor, patient developed rapid rates yesterday that was refractory to iv lopressor and required iv diltiazem; no longer treating her afib; SENIOR LINUX UNIX ENGINEER orders initiated yesterday by Dr. Wiggins after review of her COLST form. see his note from yesterday Subjective Subjective Interval history since last seen: Patient now on SENIOR LINUX UNIX ENGINEER status, in acute RF 2nd to aspiration pneumnonia, she has dementia, dysphagia and afib. Per nursing she has had low UO of 60 mL over 8hr last night, now showing some mottling. She has been getting medicated w/ morphine prn for increased work of breathing but presently seems to be fairly comfortable. Exam Narrative Exam Narrative: Gwendolyn is non-responsive to calling her name or to tactile stimulation Skin w/ acral and nasal and perioral cyanosis Respirations slowed and using accessory muscles Lungs: coarse bilateral rhonchi and wheezing Heart: irregularly irregular Abdomen: no audible bowels sounds Objective Last Vital Signs Temp 36.8 C 10/04/22 08:48 Pulse 139 H 10/04/22 05:48 Resp 24 10/04/22 03:54 BP 135/81 10/03/22 23:27 Pulse Ox 70 L 10/04/22 05:48 Laboratory Results - last 24 hr 10/03/22 10/03/22 10:04 15:00 Troponin I Cancelled Urine Legionella Ag Negative Time Spent with Patient Time Spent with Patient: <25 minutes Time was spent: referring, communicating with other health career coordinator and care coordination
--- NOTE | 2022-10-04 13:18 | RESPIRATORY ---
RT pulled AirVo along with [id number] from patients room as not longer needing device as at 12:16 today. RT called patients sister, Shavonne Urena, around 12:30 at [facility] to inform her of her sisters passing. Patient's sister was notified last night October 03 of her sisters conditions and not possibly going to make it overnight. The sister was half asleep when nursing called last night and it was decided to call her again to make sure she knew patient conditions. RT called sister to inform her that patient was comfortable and may not make it through the day. Shavonne ask [facility] to inform her when her sister passes. RT called sister at 12:30 to informer her that her sister has at 12:16. RT then was asked by Nursing to call the niece, Kristy Cabrales, to inform her as well. RT called Kristy Cabrales at 13:15 to informer her that her aunt had passed today.
--- NOTE | 2022-10-04 17:51 | W.PM.DDS ---
Date of service: 10/04/22 Time of Service: 17:52 Discharge Plan Disposition Patient Disposition: Discharge Details Reason For Visit: Aspiration Pneumonia,acute resp failure Admit Date/Time: 10/02/22 16:51 Admit Provider: Shekhar Wiggins Attending Provider: Shekhar Wiggins Primary Care Provider: Tuan Gonzalez J Discharge Data Cause of : Acute respiratory failure Discharge Date/Time-TO BE ENTERED AT DEPARTURE: 10/04/22 14:00 Discharge Sum: Prov Provider Primary care physician: Tuan Gonzalez Admitting clinician: Shekhar Wiggins Attending physician on admission: Shekhar Wiggins Consults: 10/02/22 17:04 Respiratory Therapy Consult [CONS] Routine Consultation Status:: Contact made by MD Clarification:: Manage/follow per spec. Reason for consult:: Aspiration PNA, COPD 10/03/22 17:16 Palliative Care Consult [CONS] Routine Consultation Status:: Contact made by MD Clarification:: Manage/follow per spec. Reason for consult:: Goals of care. Pronouncing clinician: Brooklynn Mccarthy Discharge Sum: Diag PCOD Cause of : Acute respiratory failure Contributing Factors (1) Acute respiratory failure: Contributing factors: aspiration pneumonia, dysphagia (2) Aspiration pneumonia: (3) COPD (chronic obstructive pulmonary disease): (4) NISHA (acute kidney injury): (5) Atrial fibrillation: Discharge Sum: Summary Date and Time Admission Date: 10/03/2307/13/23 16:51 Date of : 10/04/22 Time of : 12:16 Summary Details: 81-year-old female with history of COPD, hypertension, depression was sent from emergency department from [facility] for altered level of consciousness associated with acute respiratory distress. The emergency department she was found to be tachycardic and tachypneic and was given IV Solu-Medrol and DuoNeb treatment and placed on BiPAP. She was found to have a leukocytosis along with elevated procalcitonin level 5.6 along with acute kidney injury with a BUN of 49 creatinine 1.4. Initially she was diagnosed as having CHF given 20 mg IV Lasix however when it became apparent that she had pneumonic consolidations on her chest x-ray Rocephin was initiated. Patient was admitted to the intensive care unit for treatment acute hypoxic respiratory failure secondary to aspiration pneumonia. Clinical condition continued to decline despite aggressive treatment with bronchodilators supplemental oxygen and broad-spectrum antibiotics which included cefepime. Her course was complicated by rapid atrial fibrillation which was refractory to IV metoprolol and required IV diltiazem. Subsequent to her hospitalization a copy of her advanced directive was obtained and she had indicated it was her desire not to be transferred to the hospital unless it was necessary for comfort measures. Based on her expressed wishes and her advanced directive she was made BELLY PACKER. Her relatives were contacted. On 10/03/2022 she was transitioned to comfort measures only and antibiotics and bronchodilators were discontinued. She was continued on supplemental oxygen for her comfort and orders were given for analgesics and antianxiety's as needed. She was placed on antisialagogue to control her secretions. Respirations became very bradypneic and all respirations ceased her pulse ceased. Time of was 12:16 PM on October 04, 2022. She was pronounced at 1221. Additional Data Confirmation of as documented by pronouncing clinician: no pulse, no respirations and no heart sounds Family: at bedside Attending/PCP notified?: Yes Attending Physician: Shekhar Law MD Was code activated?: No Autopsy requested?: No gun examiner notified?: No Organ bank notified?: Yes Advance directives: Yes Hospice patient?: No
[2022-10-04 23:11] LABS: Streptococcus Pneumoniae Ag, U Negative (Negative)
== END 2022-10-04 14:00 | disposition expired | DRG 177 ==
LOC: ER 17:38 → ICU 18:12
PROVIDERS: Student in an Organized Health Care Education/Training Program; Admitting Provider Family Medicine; Emergency Provider Emergency Medicine; PCP Family Medicine; Visit Provider Family Medicine
DX: J69.0 Pneumonitis due to inhalation of food and vomit (principal); J96.01 Acute respiratory failure with hypoxia; E87.0 Hyperosmolality and hypernatremia; N17.9 Acute kidney failure, unspecified; E03.9 Hypothyroidism, unspecified; F32.A Depression, unspecified; I10 Essential (primary) hypertension; J44.9 Chronic obstructive pulmonary disease, unspecified; I48.91 Unspecified atrial fibrillation; Z66 Do not resuscitate; D72.829 Elevated white blood cell count, unspecified; Z51.5 Encounter for palliative care; T17.990A Other foreign object in respiratory tract, part unspecified in causing asphyxiation, initial encounter; F03.90 Unspecified dementia, unspecified severity, without behavioral disturbance, psychotic disturbance, mood disturbance, and anxiety; R13.10 Dysphagia, unspecified
CPT/HCPCS: 36415; 76604; 80048; 80053; 82805; 84145; 87040; 87081; 87449; 87635; 93005; 93308; 94640; 96361; 96374; 96375; 99291; 71045; 81003; 83735; 84484; 85025; 87899; 93010; 94660; 94664; 94667; 94668; 94760; 99223; 99231; 99233; J1650; J1940; J2270; J2930; J3490; J7613; J7620